=== PATIENT | male | born 1960 | race Caucasian/White ===

== ENCOUNTER 2025-04-20 05:43 | Inpatient (IN) ==
--- NOTE | 2025-04-17 10:58 | Anesthesiology Consultation ---
Date of Service April 17, 2025 Assessment & Plan Chart Review Chart Review: Acceptable Risk for Surgery and Patient NOT seen in Pre Admission Testing History Surgery Operation Date: 04/20/25 07:30 Proposed Procedures p Robotic Assisted Laparoscopic Radical Nephroureterectomy, Possible Hand Assist, Possible Open - Luis Mckee DO Height/Weight Height: 5 ft 11 in Weight: 99.79 kg Allergies Allergy/AdvReac Type Severity Reaction Status Date / Time Penicillins Allergy Unknown Unknown Verified 04/13/25 12:20 Medications Home Medications Medication Instructions Recorded Confirmed Last Taken carvedilol 12.5 mg tablet 12.5 mg PO BID 01/26/25 04/13/25 02/09/25 05:30 lisinopril 20 mg tablet 20 mg PO QAM 01/26/25 04/13/25 02/08/25 18:00 acetaminophen 500 mg tablet 1,000 mg PO QID PRN Pain, Mild 02/09/25 04/13/25 02/08/25 22:00 tamsulosin 0.4 mg capsule 0.4 mg PO HS #30 caps 02/09/25 04/13/25 Unknown cephalexin 500 mg capsule 500 mg PO BID 7 days #14 caps 04/14/25 Unknown Past Medical History Medical History Urothelial carcinoma of kidney dx 02/2025-reason for upcoming sx. Chronic kidney disease, stage 3a History of kidney stones passed on own Acid reflux Elevated PSA Borderline high cholesterol HTN (hypertension) Renal mass Following with urology BPH (benign prostatic hyperplasia) Past Family History Family History Mother Stroke Father Stroke Past Surgical History Surgical History Hx of cystoscopy (02/09/25) w/ RP, left ureteroscopy, left renal pelvis bx, laser tumor ablation History of colonoscopy History of lumbar fusion 2-3 Hx of bilateral hip replacements History of tooth extraction History of cataract surgery bilat History of cardiac cath no stents > approx 2022 Social History Smoking Status: Former smoker Do You Dip or Chew Tobacco: Yes (advised) Smoking End Date: 30 years ago Hx Alcohol Use: Yes alcohol intake frequency: holidays/special occasions only Hx Substance Use: No substance use type: does not use
[2025-04-20] MEDS ORDERED: Nursing to Pharmacy Communication SCH (06:15)
[2025-04-20] MEDS: LR 15ML/HR IV SCH (06:20)
[2025-04-20] MEDS ORDERED: MIDAZOLAM HCL 1 MG/ML 2ML VIAL ONE (06:42)
[2025-04-20] MEDS ORDERED: ONDANSETRON INJ 2 MG/ML 2 ML VIAL ONE (06:43)
[2025-04-20] MEDS ORDERED: PROPOFOL IV EMULSION 10 MG/ML 20 ML VIAL IV ONE (06:43)
[2025-04-20] MEDS ORDERED: LIDOCAINE 2% 20 MG/ML 5 ML SYR IV ONE (06:43)
[2025-04-20] MEDS ORDERED: ROCURONIUM BROMIDE 10 MG/ML 5 ML VIAL IV ONE ×2 (06:44→08:22)
[2025-04-20] MEDS ORDERED: DEXAMETHASONE SOD INJ 4 MG/ML VIAL ONE (06:44)
--- NOTE | 2025-04-20 07:01 | History & Physical Bridge Note ---
Date of Service April 20, 2025 History & Physical Bridge Note I have examined the patient, reviewed the History & Physical and in the interval since the performance of the History & Physical I have noted the following changes of clinical significance: no changes noted
[2025-04-20] MEDS ORDERED: ONDANSETRON INJ 2 MG/ML 2 ML VIAL IV PRN ×2 (07:15→08:29)
[2025-04-20] MEDS ORDERED: HYDROmorphone INJ 2 MG/ML SYR/VIAL IV PRN (08:29)
[2025-04-20] MEDS ORDERED: HYDROmorphone INJ 1 MG/ML SYRINGE IV PRN (08:29)
[2025-04-20] MEDS ORDERED: ATROPINE SULFATE 0.1 MG/ML 10ML SYR IV PRN (08:29)
[2025-04-20] MEDS ORDERED: SUGAMMADEX SODIUM 200 MG/2 ML VIAL IV ONE (08:35)
[2025-04-20] MEDS: SURGICEL ABSORB HEMOSTAT 2IN X 14IN TOP ONE (10:01)
[2025-04-20] MEDS ORDERED: PHENYLEPHRINE 100MCG/ML 5ML SYR ONE (10:05)
[2025-04-20] MEDS: FLOSEAL HEMOSTATIC MATRIX 10ML TOP ONE (11:35)
[2025-04-20] MEDS: TISSEEL FIBRIN SEALANT 10ML TOP ONE (11:35)
[2025-04-20] MEDS ORDERED: HYDROmorphone INJ 2 MG/ML SYR/VIAL ONE (11:39)
[2025-04-20] MEDS: BUPIVACAINE 0.5 % 5 MG/1 ML MPF 30ML VIAL ONE (11:48)
--- NOTE | 2025-04-20 12:10 | Operative Report ---
PG Post Operative Report Pre & Post Diagnosis Operation Date: 04/20/25 07:30 Pre-Op Diagnosis: Urothelial carcinoma of kidney, Renal mass Post-Op Diagnosis: Urothelial carcinoma of kidney, Renal mass I identified the patient and participated in the time-out.: Yes Procedure Operation Date: 04/20/25 07:30 Actual Procedures p Robotic Assisted Laparoscopic Left Radical Nephroureterectomy with extensive lysis of adhesions and closure of bladder - Luis Mckee DO Surgeon Luis Mckee, II, DO Clarifier ANNAMARIA Lynn Estimated Blood Loss 50 Findings Consistent with Post-Op Diagnosis Upper tract UCC of the renal pelvis of the left kidney. Significant adhesions in the pelvic region and along the lateral wall and significant attachment of portions of the omentum to the pelvis. Ureter with severe edematous changes additionally significant edematous changes throughout the perinephric fat. Specimens Left radical nephro ureterectomy Drains 18 [place] Kelley catheter. 10 [place] drain Anesthesia Type General Complications none Disposition Disposition: Recovery Room Indications Patient with confirmed upper tract high-grade UCC involving the renal pelvis. Risk and benefits were discussed at length. Patient elected to undergo robotic assisted laparoscopic radical nephroureterectomy. Description of Procedure The patient was brought to the operative suite and placed under general endotracheal intubation anesthesia in the supine position. The patient was tr ansferred to the lateral position with the operative side up. At this point, the patient prepped and draped in the usual sterile fashion and a timeout was completed. Preoperative antibiotics of Ancef 2 grams had been given. HELADIO's and SCD's were placed on the patient's lower extremities. A catheter was placed using sterile technique. With the time out completed the patient was flexed and the skin was marked. The lateral camera port site was anesthetized. A small incision was made into the skin and subcutaneous tissues. A Varess needle was selected and placed. The needle was easily moved and it was irrigated and aspirated without any issues or concerns for placement. Insufflation commenced. Once insufflated, an 8 mm robotic port was placed. The cavity was insufflated to 12-15 mmHG. A laparoscopic camera was placed and the abdominal cavity inspected. No bleeding, injury, or other concerning features were noted. At this point, the skin was marked for port placement and 8mm working ports were placed. The skin was anesthetized down to fascia and an approx 1cm incision was made to place the additional 2 x 8mm ports. Finally a 12 mm robotic port was placed in the inferior lower quadrant. Midline, Two pharmacy sales assistant ports were also placed in similar fashion under direct visualization. These ports were a 12 mm port right above the umbilicus and a smaller 5 mm port superior to this. The robot was positioned and docked. The camera was placed and all trocars were positioned under direct visualization. Cindy Mejía was integral in port placement, camera utilization, and docking procedure. She remained in sterile attire and then proceeded to assist the remainder of the case. At this point, I transitioned to the robotic console. The colon was mobilized medially to expose the retroperitoneum and the area assessed. Adhesions were freed to allow mobilization. Significant adhesions were noted in the pelvis. Additionally the tissue was noted to be significantly edematous coming from the retroperitoneum. A significant amount of adhesions were noted from the colon and were freed. Approx 20 additional minutes for lysis of adhesions. These were dissected with b vidal technique. Cautery was used to assist dissection and control bleeding. The retroperitoneal fat was assessed. This tissue was found to be severely edematous. The ureter and gonadal vein were identified. The ureter was isolated and dissection was taken superiorly along the gonadal vein in order to avoid excess manipulation of the ureter. This was followed to the renal pelvis and junction with the renal vein. The Renal Artery and Vein were then cleaned and exposed. Dissection was then taken inferiorly. This was dissected down to the crossing of the iliac vessels. At this point there was noted to be significant inflammatory changes. The ureter appeared more atrophic at this point. The surrounding tissue also thinned out significantly. At this point it was decided to manage the renal vessels prior to further dissection into the pelvis. The Vessels were assessed a final time. Utilizing a staple load on first the artery and then the vein the robotic stapling device with vascular loads were used to incise the vessels. No significant bleeding or other issues were noted. The adrenal vein was identified and able to be spared however due to its location and the close proximity and significant edematous changes along the gonadal vein the gonadal vein was excised with the specimen. There was an additional small vessel noted to be calling from the renal vein to what appeared to be the lumbar region. Was likely a lumbar vein. A additional small vessel was also found posterior to the renal vein going into a similar position. Both of these were clipped utilizing hemoclips. They were then incised. With the major vessels managed the kidney appeared to oscar appropriately. Dissection was then taken down to the posterior and lateral wall clearing the retroperitoneal fat surrounding the ureter completely. The gonadal vein was then clipped utilizing the Hem-o-quinn and the vessel was incised at its departure from the retroperitoneum. This allowed more mobility with dissection of the ureter. There was significant adhesions and edematous changes along this tissue with significant adherence of the gonadal vein. The ureter there was then dissected down into the pelvis. The patient was slightly repositioned into a reverse Trendelenburg position. Care was taken to gently retract the vas deferens as well as the surrounding tissue in the bladder. The bladder was appropriately collapsed. The ureter was able to be dissected down to the insertion into the bladder wall. For hemoclips were then placed across the ureter along the distal segments in order to assist with retraction as well as to close off the ureter. A V-Loc suture was then used to make a stay suture at the superior portion of the insertion of the ureter on the bladder. Once these were all in place utilizing the scissors the bladder was dissected down along the ureter to its insertion point and a small cuff of bladder was excised to remove the ureter completely. Once completely excised the V-Loc suture was utilized to close the mucosal and then a muscle layer in a running fashion to close the small opening and oversew the area. The area was inspected. The ureter was further over there were mobilized and freed along the lateral and inferior edges and placed into the area above the crossing of the iliacs. A leak test was then completed utilizing saline and the catheter. No leakage or other abnormalities were noted. The catheter was then set back to drainage. Care was then taken to further dissect the remaining attachments of the kidney and ureter. The adrenal vein was dissected free and the superior edge of the Stanley's fascia was able to be freed from the attachments to the spleen and the abdominal wall. The kidney was then fully mobilized and freed. No significant bleeding or major areas of concern were noted. Extensive inspection of the area was done with no signs of major bleeding or other issues. Surgicel hemostatic agent sheets were placed under the spleen and on the adrenal edge. Additionally she was placed on the vessel stumps. Hemostatic Floseal and Tisseel agents were also placed. These hemostatic agent was also placed on the vessel stumps. No major bleeding or other issues. The entire dissection space was inspected one final time. No bleeding or injuries or areas of concern were noted. No tumor or other concerning features w ere noted. At this point, the robot was undocked and moved away from the patient. The port sites were all assessed laparoscopically. The 12 mm midline port site was closed with the Marcus Redd device. The other ports were assessed and no issues observed. The 12 mm inferior robotic port incision was opened further exposing fascia. A larger incision was planned due to the significant edematous changes. This was extended and care was taken to dissect the fascia down. Once cleared the rectus muscle was able to be retracted medially. The abdominal cavity was then opened under careful monitoring. The kidney was attempted to be removed however due to the large size and the significant edematous changes the incision had to be significantly extended. This also required extension of the opening along the fascia. Care was taken to monitor it closely as the area was extended laterally. With significant manipulation the kidney was able to be removed in total including the entire specimen. At this point it was decided to leave a drain and a 10 [place] Citizen drain was placed in the port site incision just superior to the Grewal like incision created to remove the kidney. This was then used and positioned in the pelvis. A 3-0 silk suture was then used to secure it. The drain was set to drainage and the area inspected no major issues or concerns. Omentum was draped over the area. A running 1-0 PDS l suture was used to close fascia. A 2-0 Vicryl suture was then used to close the subcutaneous tissues in a running fashion. The skin at each site was closed with a stapling device. The area was cleaned and bandages placed on each incision. The patient was cleaned and bandaged. The patient was moved back into the supine position The patient was cleaned, aroused from anesthesia, and transferred to the pacu in stable condition having tolerated the procedure well with no complications. I was present and participated in all aspects of the procedure. ANNAMARIA Lynn was critical in the portions as mentioned above. Will plan to observe postoperatively and monitor. Will assess drain in the morning for possible removal. Will plan to maintain catheter for approximately 7 days to allow full healing of the bladder prior to removal. I attest to the content of the Intraoperative Record and any orders documented therein. Any exceptions are noted below.
[2025-04-20 12:31] LABS: Hematocrit (blood only) 38.1 % (42.0-52.0); Hemoglobin 12.2 g/dl (14.0-18.0); Mean Corpuscular Hemoglobin 27.1 pg (25.0-34.0); Mean Corpuscular Volume 84.5 fL (80.0-100.0); Platelet Count 184 K/uL (130-400); RDW Standard Deviation 43.6 fL (36.4-46.3); Red Blood Count 4.51 M/uL (4.70-6.10); White Blood Count 14.03 K/ul (4.8-10.8)
[2025-04-20 12:45] LABS: Alanine Aminotransferase 10.0 U/L (7-52); Albumin Globulin Ratio 1.1 (0.9-2); Alkaline Phosphatase 94.0 U/L (34-104); Anion Gap 7.0 (3-11); Bilirubin,Total 0.4 mg/dl (0.2-1.0); Blood Urea Nitrogen 17.0 mg/dl (6-23); Calcium 8.1 mg/dl (8.6-10.3); Carbon Dioxide 23.0 mmol/L (21-32); Chloride 109.0 mmol/L (98-107); Creatinine Clr Calc Pharmacy 67.4 ml/min; Globulin 3.1 gm/dl (2.5-4.0); Glucose 183.0 mg/dl (70-99(Fasting)); Potassium 4.9 mmol/L (3.5-5.1); Sodium 139.0 mmol/L (136-145); Total Protein 6.5 gm/dl (6.0-8.3)
--- NOTE | 2025-04-20 12:48 | Anesthesiology Progress Note ---
Date of Service April 20, 2025 Anesthesia Post Procedure Vital Signs Vital Signs: Temp Pulse Pulse Resp BP BP Pulse Ox 04/20/25 12:35 36.7 C 66 13 159/73 H 98 04/20/25 12:25 81 14 167/70 H 99 04/20/25 12:15 80 19 163/77 H 98 04/20/25 12:05 83 28 H 169/80 H 98 04/20/25 11:58 36.5 C 87 28 H 175/87 H 94 04/20/25 06:10 36.8 C 55 L 18 186/70 H 99 O2 Del Method O2 Flow Rate 04/20/25 12:35 Nasal Cannula 4 04/20/25 12:25 Nasal Cannula 4 04/20/25 12:15 Oxymask 6 04/20/25 12:05 Oxymask 6 04/20/25 11:58 Oxymask 6 04/20/25 06:10 Room Air Pain Intensity Abdomen: Pain Intensity: 3 Transfer of Care Handoff Completed per policy Notes Mental Status: alert / awake / arousable Patient Amnestic to Procedure: Yes Nausea / Vomiting: adequately controlled Pain: adequately controlled Airway Patency, RR, SpO2: stable & adequate BP & HR: stable & adequate Hydration State: stable & adequate Anesthetic Complications: no major complications apparent and Pt Satisfied with anesthetic care
[2025-04-20 12:50] LABS: Immature Granulocytes # (auto) 0.06 K/uL (0.01-0.20); Immature Granulocytes % (auto) 0.4 %
[2025-04-20] MEDS ORDERED: ACETAMINOPHEN 500 MG TAB PO PRN (12:53)
[2025-04-20] MEDS: MoRPHine SULFATE 2 MG/ML CARP IV PRN (13:17)
[2025-04-20] MEDS: D5W AND 1/2NSS + 20MEQ KCL 20 MEQ/1,000 ML BAG IV SCH (14:18)
[2025-04-20] MEDS: DOCUSATE SODIUM 100 MG CAP PO SCH (14:18)
--- NOTE | 2025-04-20 14:32 | Hospitalist Consultation ---
"Date of Consultation April 20, 2025 Assessment & Plan (1) Urothelial carcinoma of kidney: (2) HTN (hypertension): (3) Chronic kidney disease, stage 3a: (4) BPH w urinary obs/LUTS: Plan Shashank is a 65-year-old man with past medical history of urothelial carcinoma of the left kidney, CKD stage IIIa, hypertension, and BPH with LUTS. He had a laparoscopic left radical nephroureterectomy with Dr. Mckee on 04/20 and tolerated the procedure well. EBL 50 cc. Hospital medicine was consulted for medical management of his hypertension/CKD. #Urothelial carcinoma of left kidney | S/p radical left nephroureterectomy - Pain regimen, fluids, diet, activity level, DVT prophylaxis, and discharge planning per primary team. Agree with IV fluids overnight to prevent [place] - Requiring some supplemental O2 postoperatively. Wean O2 as tolerated to maintain O2 sat > 90%. Use incentive spirometer Q1HWA - Mild leukocytosis of 14.03 with neutrophil predominance, likely reactionary. Afebrile. Repeat CBC with a.m. labs - Chronic anemia, hgb at baseline postop. Monitor CBC with a.m. labs #Hypertension outpatient regimen of carvedilol 12.5 mg BID, lisinopril 20 mg daily - Blood pressure currently uncontrolled at 203/85 at time of consult - Added on hydralazine 10 mg IV Q8H PRN with parameters - Continue carvedilol and lisinopril #CKD stage IIIa defer management to nephrology who is also consulted #BPH with LUTS continue tamsulosin 0.4 mg HS Added on AM CBC and BMP Hospital medicine will continue to follow. Please reach out with questions or concerns. Supervising Physician Co-Signing Physician Notes Attending Attestation and Consult Note: Pt seen/examined, chart reviewed, consult care plan d/w VICENTE Junior. I agree w/ the christie components of her consult documentation. 65yo male with CKD stage IIIa, urothelial carcinoma of left kidney, BPH with LUTS, HTN. He presented today to undergo laparoscopic left radical nephroureterectomy with Dr. Ciro Mckee, [facility]. We were asked to see Mr Ambrocio post-op for BP management. During my assessment he complained of left sided abd & flank pain. Also complained of abdominal bloating. No dyspnea or chest pain. No headache. PMH/PSH/allergies/meds/sochx/famhx - reviewed vitals - BP markedly elevated, otherwise VSS gen - sitting in chair, looks mildly uncomfortable neck - no JVD heart - RRR, s1 s2, no murmur lungs - CTA b/l abd - mildly distended, BS decreased, incisional tenderness on left, no HSM ext - no edema, pulses 2+ b/l pre-op labs from March reviewed - Creatinine 1.33 A/P: 1. urothelial cancer of left kidney s/p radical nephroureterectomy by Dr Mckee 2. uncontrolled HTN - some of this is likely 2nd to pain, car-operative decadron, and holding of his BP meds prior to surgery -would give his coreg early -hydralazine IV prn -hold lisinopril for now until stability of creatinine is verified tomorrow 3. CKD stage 3a - repeat BMP am 4. BPH - flomax Thank you for this consult; we will follow with you Gurmeet Cool MD History of Present Illness Reason for Consultation: HTN, CKD Requesting Physician: Luis Mckee II, DO Attending Physician: Luis Mckee II, DO History of Present Illness Shashank is a pleasant 65-year-old man with PMH of CKD stage IIIa, urothelial carcinoma of kidney, BPH with LUTS, and vitamin D deficiency. He presented for laparoscopic left radical nephroureterectomy with Dr. Mckee on 04/20/2025. Per review of operative report, EBL was listed as 50 cc, and there were no complications noted. Per review of patient's vitals postop, he has been hypertensive and requiring supplemental O2; vitals otherwise stable. No recent medication changes. Does not use supplemental O2 at baseline. No CPAP at bedtime. Patient seen and evaluated at bedside postoperatively. He reports some discomfort around his surgical site, primarily around his left flank that radiates to his abdomen, but states overall his pain is controlled with medication. He is well tolerating his clear liquid diet. He denies any issues with his Kelley catheter. Denies chest pain, shortness of breath. Denies fever, chills, lightheadedness, dizziness, headache. Denies N/V/D, abdominal pain. Denies paresthesias in his extremities. No complaints or concerns at this time. Allergies Allergy/AdvReac Type Severity Reaction Status Date / Time Penicillins Allergy Unknown Unknown Verified 04/20/25 06:06 Home Medications Medication Instructions Recorded Confirmed Type carvedilol 12.5 mg tablet 12.5 mg PO BID 01/26/25 04/20/25 History lisinopril 20 mg tablet 20 mg PO QAM 01/26/25 04/20/25 History acetaminophen 500 mg tablet 1,000 mg PO QID PRN Pain, Mild 02/09/25 04/20/25 History tamsulosin 0.4 mg capsule 0.4 mg PO HS #30 caps 02/09/25 04/20/25 Rx oxycodone 5 mg tablet 5 mg PO Q6H PRN pain #12 tabs 04/21/25 Rx Patient History Medical History Urothelial carcinoma of kidney dx 02/2025-reason for upcoming sx. Chronic kidney disease, stage 3a History of kidney stones passed on own Acid reflux Elevated PSA Borderline high cholesterol HTN (hypertension) Renal mass Following with urology BPH (benign prostatic hyperplasia) Surgical History Hx of cystoscopy (02/09/25) w/ RP, left ureteroscopy, left renal pelvis bx, laser tumor ablation History of colonoscopy History of lumbar fusion 2-3 Hx of bilateral hip replacements History of tooth extraction History of cataract surgery bilat History of cardiac cath no stents > approx 2022 Family History Mother Stroke Father Stroke Social History Smoking Status: Former smoker Tobacco Type: Smokeless Tobacco (Dip or Chew) Second Hand Exposure: No; Do You Dip or Chew Tobacco: No; Hx Alcohol Use: No Hx Substance Use: No Preferred Language: Nepali Communication Ability: Effective Swager Operator Required: No Beliefs That Will Affect Care: None Current Living Situation: Alone Current Living Situation Comment: 3 story home Feels Safe at Home: Yes Assistive Devices: Walker Review of Systems Review of Systems: All systems reviewed & are unremarkable except as noted in HPI & below Physical Exam Physical Exam: General: No acute distress, nondiaphoretic, well-developed, well-nourished. Skin: Warm, dry. No rashes or peripheral edema noted. Cardiac: Regular rate and rhythm without murmurs gallops or rubs. Pulm: Diminished at bases but otherwise clear to auscultation bilaterally without wheezes, rales or rhonchi. Normal respiratory effort. 96% on 2 L NC. Abdominal: Soft, nontender. Distended. Hypoactive bowel sounds present. : Kelley catheter draining pale yellow urine. Neuro: A&O x3. No focal neurological deficits. Results & Data Results & Data Vital Signs (Past 12 Hours) Vital Signs Temp Pulse Pulse Resp BP BP Pulse Ox 04/20/25 13:45 97.5 F L 62 20 203/85 H 96 04/20/25 13:15 98.1 F 60 20 194/80 H 93 04/20/25 12:49 98.1 F 63 20 182/72 H 96 04/20/25 12:35 98.1 F 66 13 159/73 H 98 04/20/25 12:25 81 14 167/70 H 99 04/20/25 12:15 80 19 163/77 H 98 04/20/25 12:05 83 28 H 169/80 H 98 04/20/25 11:58 97.7 F 87 28 H 175/87 H 94 04/20/25 06:10 98.2 F 55 L 18 186/70 H 99 O2 Del Method O2 Flow Rate 04/20/25 13:45 Nasal Cannula 2 04/20/25 13:15 Nasal Cannula 2 04/20/25 12:49 Nasal Cannula 2 04/20/25 12:35 Nasal Cannula 4 04/20/25 12:25 Nasal Cannula 4 04/20/25 12:15 Oxymask 6 04/20/25 12:05 Oxymask 6 04/20/25 11:58 Oxymask 6 04/20/25 06:10 Room Air Laboratory Results Reviewed CBC with differential Reviewed CMP, chemistries PG Care Time/CCT Total # of Minutes Spent Total Time Spent with Patient: Total time spent is greater than 50% in coordination of care (as documented) at patient's floor/unit and/or counseling patient: Coding Level of Care Code 93260 IN/OBS CONSULT LVL 4,60M Diagnoses Urothelial carcinoma of kidney C64.9 HTN (hypertension) I10 Chronic kidney disease, stage 3a N18.31 BPH w urinary obs/LUTS N40.1; N13.8"
--- NOTE | 2025-04-20 15:51 | Nephrology Consultation ---
Date of Consultation April 20, 2025 Assessment & Plan (1) Urothelial carcinoma of kidney: (2) History of nephrectomy, left: (3) HTN (hypertension): (4) Chronic kidney disease, stage 3a: Plan Stage 3A CKD, b/l cr 1.3 to 1.5 mg/dl with h/o HTN, NSAID use, admitted to the hospital this morning and had elective surgery was without complication and postsurgery robotic left nephroureterectomy. Labs showed kidney function stable. Has been making decent amount of urine. Prior urinalysis was negative for proteinuria. BP has been elevated most like related to postsurgical pain as he seemed to be in significant pain just immediately after nephrectomy. He had lab after nep hrectomy this morning showed kidney function stable electrolyte acceptable. --Blood pressure elevated most likely related to surgical pain, focus on pain control --Continue on lisinopril 20 mg daily for now, if BP remains elevated, will consider increasing dose. --avoid NSAIDs. --Monitor kidney function and urine output, expect kidney function to stay relatively stable. Thank you for the consultation, it was a pleasure to see Mr. Ambrocio. History of Present Illness Reason for Consultation: Stage 3A CKD, acute kidney injury, nephrectomy for renal cell carcinoma. Attending Physician: Luis Mckee, II, DO History of Present Illness Mr. Shashank Ambrocio is a 65 yo m with stage 3A CKD, b/l cr 1.3 to 1.5 mg/dl, HTN, NSAID use recent [place] and left sided urothelial carcinoma, admitted for elective nephrectomy this morning. Nephrology consult was requested for management of kidney function after unilateral nephrectomy. EMR records were reviewed in detail during patient's visit. Shashank was admitted this morning and had elective robotic left nephroureterectomy. Surgery was uneventful. He has been tolerating soft diet but has been having significant pain at surgical area. Blood pressure has been elevated. Reviewed lab after surgery showed kidney function relatively stable, creatinine 1.3, electrolyte acceptable. Prior urinalysis was negative for proteinuria. Has been on lisinopril 20 mg daily. Has been taking ibuprofen 2-4 tabs daily for years for back and leg pain. No family history of CKD or ESKD but dad had history of dialysis personal and possibly uncle had kidney malignancy as well. Chews tobacco more than 30 years. Works as a painting. He first noticed gross hematuria in Nov [address] showed left pelvic fullness. Cystoscopy on 02/09/2025 showed left ureteral mass and had laser tumor ablation and biopsy which confirmed high-grade noninvasive urothelial carcinoma s of/p robotic left nephroureterectomy on 04/20/2025. Hypertension for more than 5 years, blood pressure generally poorly controlled, on lisinopril 20 mg daily, carvedilol 12.5 mg twice a day. History of diabetes for coronary artery disease. Has BPH, on tamsulosin. He just came from surgery few hours ago, continues to have significant pain at surgical site. Blood pressure elevated. Denies any shortness of breath or chest pain. Tolerating liquid diet. Allergies Allergy/AdvReac Type Severity Reaction Status Date / Time Penicillins Allergy Unknown Unknown Verified 04/20/25 06:06 Home Medications Medication Instructions Recorded Confirmed Type carvedilol 12.5 mg tablet 12.5 mg PO BID 01/26/25 04/20/25 History lisinopril 20 mg tablet 20 mg PO QAM 01/26/25 04/20/25 History acetaminophen 500 mg tablet 1,000 mg PO QID PRN Pain, Mild 02/09/25 04/20/25 History tamsulosin 0.4 mg capsule 0.4 mg PO HS #30 caps 02/09/25 04/20/25 Rx cephalexin 500 mg capsule 500 mg PO BID 7 days #14 caps 04/14/25 04/20/25 Rx Patient History Medical History Urothelial carcinoma of kidney dx 02/2025-reason for upcoming sx. Chronic kidney disease, stage 3a History of kidney stones passed on own Acid reflux Elevated PSA Borderline high cholesterol HTN (hypertension) Renal mass Following with urology BPH (benign prostatic hyperplasia) Surgical History Hx of cystoscopy (02/09/25) w/ RP, left ureteroscopy, left renal pelvis bx, laser tumor ablation History of colonoscopy History of lumbar fusion 2-3 Hx of bilateral hip replacements History of tooth extraction History of cataract surgery bilat History of cardiac cath no stents > approx 2022 Family History Mother Stroke Father Stroke Social History Smoking Status: Former smoker Tobacco Type: Smokeless Tobacco (Dip or Chew) Smoking End Date: 30 years ago; Second Hand Exposure: No; Do You Dip or Chew Tobacco: Yes (advised); Tobacco Cessation Education Requested by Patient: No Hx Alcohol Use: Yes Hx Substance Use: No Preferred Language: [place]se Communication Ability: Effective 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 Beliefs That Will Affect Care: None Current Living Situation: Alone Other Information That Helps Us Care for You: No Feels Safe at Home: Yes Safety Concerns: Feels Safe At This Time Assistive Devices: Glasses Review of Systems Review of Systems: All systems reviewed & are unremarkable except as noted in HPI & below Physical Exam Constitutional: WD/WN, vitals as above no acute distress Eyes: + anicteric sclerae Neck: normal visual inspection Respiratory: no respiratory distress Auscultation: lungs clear to auscultation bilaterally Cardiovascular: Rate/Rhythm: regular rate and regular rhythm Heart Sounds: normal S1 and normal S2 Extremities: no edema Gastrointestinal (Abdomen): Obese, surgical site dressing intact. Musculoskeletal: Extremities: extremities normal to inspection Skin: no rashes, warm and dry Neurologic: no focal motor deficits Psychiatric: Orientation: alert and oriented x 3 Affect: euthymic affect Genitourinary: Kelley bag with clear urine Results & Data Vital Signs (Past 12 Hours) Vital Signs Temp Pulse Pulse Resp BP BP Pulse Ox 04/20/25 15:07 36.6 C 85 18 186/80 H 96 04/20/25 13:45 36.4 C L 62 20 203/85 H 96 04/20/25 13:15 36.7 C 60 20 194/80 H 93 04/20/25 12:49 36.7 C 63 20 182/72 H 96 04/20/25 12:35 36.7 C 66 13 159/73 H 98 04/20/25 12:25 81 14 167/70 H 99 04/20/25 12:15 80 19 163/77 H 98 04/20/25 12:05 83 28 H 169/80 H 98 04/20/25 11:58 36.5 C 87 28 H 175/87 H 94 04/20/25 06:10 36.8 C 55 L 18 186/70 H 99 O2 Del Method O2 Flow Rate 04/20/25 15:07 Nasal Cannula 2 04/20/25 13:45 Nasal Cannula 2 04/20/25 13:15 Nasal Cannula 2 04/20/25 12:49 Nasal Cannula 2 04/20/25 12:35 Nasal Cannula 4 04/20/25 12:25 Nasal Cannula 4 04/20/25 12:15 Oxymask 6 04/20/25 12:05 Oxymask 6 04/20/25 11:58 Oxymask 6 04/20/25 06:10 Room Air PG Care Time/CCT Total # of Minutes Spent Total Time Spent with Patient: Total time spent is greater than 50% in coordination of care (as documented) at patient's floor/unit and/or counseling patient: Coding Level of Care Code 50590 INT INP/OBS CARE MIN Diagnoses Urothelial carcinoma of kidney C64.9 History of nephrectomy, left Z90.5 HTN (hypertension) I10 Chronic kidney disease, stage 3a N18.31
[2025-04-20] MEDS: TAMSULOSIN HCL 0.4 MG CAP PO SCH (20:53)
[2025-04-21 06:49] LABS: Hematocrit (blood only) 37.6 % (42.0-52.0); Hemoglobin 12.2 g/dl (14.0-18.0); Immature Granulocytes # (auto) 0.04 K/uL (0.01-0.20); Immature Granulocytes % (auto) 0.4 %; Mean Corpuscular Hemoglobin 27.2 pg (25.0-34.0); Mean Corpuscular Volume 83.9 fL (80.0-100.0); Platelet Count 208 K/uL (130-400); RDW Standard Deviation 43.0 fL (36.4-46.3); Red Blood Count 4.48 M/uL (4.70-6.10); White Blood Count 10.80 K/ul (4.8-10.8)
--- NOTE | 2025-04-21 08:33 | Urology Progress Note ---
Date of Service April 21, 2025 Assessment & Plan (1) History of nephrectomy, left: Plan: POD 1 from Robotic Assisted Laparoscopic Left Radical Nephroureterectomy with extensive lysis of adhesions and closure of bladder Hypertensive, otherwise vitals stable. Afebrile wbc 10.80, hgb 12.2 Having some pain, also reporting chest pain and shortness of breath. Discussed with nursing. Hospitalist service will be contacted for this. EKG pending Drain output 25ml overnight. Possibly remove today. Will reassess. dvt prophylaxis: scd's, encouraged ambulation/activity Will reassess for discharge today, pending further work up/results. Patient seen again around 12:30pm. Sitting in bedside chair. Had ekg and cxr, troponin slightly elevated. Repeat lab ordered for 1500 today Patient does not feel comfortable with discharge yet today. Will plan to keep him again tonight and reassess for discharge tomorrow. Drain output about 75ml. Will leave drain in until tomorrow. (2) Urothelial carcinoma of kidney: Admission and Anticipated Discharge Date Admission Date: April 20, 2025 Subjective 65 year old patient POD 1 from Robotic Assisted Laparoscopic Left Radical Nephroureterectomy with extensive lysis of adhesions and closure of bladder. Reports some abdominal pain. Also states he has some chest pain, shortness of breath, pain with deep breath. Pass some flatus yesterday, but not today. Physical Exam Constitutional: well developed and well nourished; no acute distress Neck: normal visual inspection Respiratory: normal respiratory effort; no respiratory distress and no labored breathing Cardiovascular: Rate/Rhythm: regular rate Gastrointestinal (Abdomen): Inspection/Auscultation: + abdomen distended Percussion/Palpation: + abdomen tender and abdomen soft Dressing and drain in place. Did not remove yet at this point Psychiatric: A+Ox3, euthymic affect Genitourinary: catheter in place, draining clear yellow urine Results & Data Vital Signs (Past 12 Hours) Vital Signs Temp Pulse Pulse Pulse Resp BP Pulse Ox 04/21/25 07:57 36.3 C L 77 18 169/79 H 95 04/21/25 03:43 36.7 C 81 20 176/73 H 94 04/21/25 01:29 16 192/81 H 04/21/25 00:19 36.7 C 80 20 194/78 H 95 07/17/25 22:04 61 O2 Del Method 04/21/25 07:57 Room Air 04/21/25 03:43 Room Air 04/21/25 01:29 04/21/25 00:19 Room Air 04/20/25 22:04 PG Care Time/CCT Total # of Minutes Spent Total Time Spent with Patient: Total time spent is greater than 50% in coordination of care (as documented) at patient's floor/unit and/or counseling patient: Coding Level of Care Code None Diagnoses History of nephrectomy, left Z90.5 Urothelial carcinoma of kidney C64.9
--- NOTE | 2025-04-21 08:49 | Hospitalist Progress Note ---
"Date of Service April 21, 2025 Assessment & Plan (1) Urothelial carcinoma of kidney: (2) Chest pain: (3) HTN (hypertension): (4) Chronic kidney disease, stage 3a: (5) BPH w urinary obs/LUTS: Plan Shashank is a 65-year-old man with past medical history of urothelial carcinoma of the left kidney, CKD stage IIIa, hypertension, and BPH with LUTS. He had a laparoscopic left radical nephroureterectomy with Dr. Mckee on 04/20 and tolerated the procedure well. EBL 50 cc. Hospital medicine was consulted for medical management of his hypertension/CKD. #Urothelial carcinoma of left kidney | S/p radical left nephroureterectomy - Pain regimen, fluids, diet, activity level, DVT prophylaxis, and discharge planning per primary team - No longer requiring supplemental O2 - Leukocytosis now resolved, was likely reactionary to surgery. Remains afebrile - Chronic anemia, hgb at baseline postop #Chest pain - complained of chest pain morning of 04/21 - likely secondary to gas pains from robotic assisted laparoscopic surgery - EKG with NSR with 1st degree block and PACs. No ischemic changes - Troponin midly elevated at 39.1 - will repeat at 1500 - CXR with no acute cardiopulmonary abnormality; does note intraperitoneal free air below the diaphragm - likely related to surgery - Hypertensive at 169/79; vitals otherwise stable #Hypertension outpatient regimen of carvedilol 12.5 mg BID, lisinopril 20 mg daily - Blood pressure currently uncontrolled at 203/85 at time of consult - Added on hydralazine 10 mg IV Q8H PRN with parameters - Continue carvedilol and lisinopril #CKD stage IIIa defer management to nephrology who is also consulted #BPH with LUTS continue tamsulosin 0.4 mg HS Hospital medicine will continue to follow. Please reach out with questions or concerns. Ordered EKG, troponin, CXR Admission and Anticipated Discharge Date Admission Date: April 20, 2025 Supervising Physician Co-Signing Physician Notes Attending Attestation - Chart reviewed, care plan d/w VICENTE Junior. I agree w/ the christie components of her consult documentation. Gurmeet Cool MD Subjective Patient seen and evaluated in bedside chair with two of his friends present. He had chest pain this morning which he reported around 0800 but states this began around 0200. He describes this has a stabbing pain with some associated shortness of breath. He denies any chest pain or shortness of breath at this time. Denies lightheadedness/dizziness/anxiety. He reports his chest pain resolved after getting OOB to the bedside chair. Likely was referred pain from gas during his surgery yesterday. We discussed the results of his EKG, telemetry monitoring, CXR, and labs/troponin. Currently, he has some left flank discomfort and abdominal discomfort. He denies any other complaints or concerns at this time. Telemetry reviewed: NSR with 1st degree block and PACs, rate 60-80s. Review of Systems Review of Systems: All systems reviewed & are unremarkable except as noted in Subjective Gastrointestinal: + bloating Genitourinary: + flank pain (left side) Physical Exam Physical Exam: General: No acute distress, nondiaphoretic, well-developed, well-nourished. Skin: Warm, dry. No rashes or peripheral edema noted. Cardiac: Regular rate and rhythm without murmurs gallops or rubs. Pulm: Diminished at bases but otherwise clear to auscultation bilaterally without wheezes, rales or rhonchi. Normal respiratory effort. 95% on room air. Abdominal: Soft. Tender to palpation. Distended. Hypoactive bowel sounds present. : Kelley catheter draining clear yellow urine. Neuro: A&O x3. No focal neurological deficits. Results & Data Results & Data Vital Signs (Past 12 Hours) Vital Signs Temp Pulse Pulse Pulse Resp BP Pulse Ox 04/21/25 07:57 97.3 F L 77 18 169/79 H 95 04/21/25 03:43 98.1 F 81 20 176/73 H 94 04/21/25 01:29 16 192/81 H 04/21/25 00:19 98.1 F 80 20 194/78 H 95 04/20/25 22:04 61 O2 Del Method 04/21/25 07:57 Room Air 04/21/25 03:43 Room Air 04/21/25 01:29 04/21/25 00:19 Room Air 04/20/25 22:04 Laboratory Results Reviewed CBC Reviewed CMP Reviewed troponin Diagnostic Findings Reviewed CXR Chest X-Ray 04/21/25 08:37 SINGLE VIEW CHEST CLINICAL HISTORY: Chest pain. Recent surgery. FINDINGS: An AP, portable, upright chest radiograph is correlated with chest CT dated 03/21/2025. The heart is enlarged but noting atherosclerotic calcification of the thoracic aorta. The pulmonary vasculature is noncongested. There is elevation of the left hemidiaphragm and bibasilar atelectasis. No airspace consolidation typical for pneumonia or large pleural effusion is identified. No pneumothorax is seen. The skeletal structures are osteopenic. The bony thorax is grossly intact. Intraperitoneal free air is seen below the diaphragm. IMPRESSION: 1. Cardiomegaly with no acute cardiopulmonary abnormality identified. 2. Intraperitoneal free air below the diaphragm is nonspecific and may be related to recent surgery. Clinical correlation will be essential. ACT 112: Negative or not required by law. Electronically signed by: Henry Wadsworth M.D. 04/21/2025 9:07 AM PG Care Time/CCT Total # of Minutes Spent Total Time Spent with Patient: Total time spent is greater than 50% in coordination of care (as documented) at patient's floor/unit and/or counseling patient: Coding Level of Care Code 36921 SUB INP/OBS CARE 3/50MIN Diagnoses Urothelial carcinoma of kidney C64.9 Chest pain R07.9 HTN (hypertension) I10 Chronic kidney disease, stage 3a N18.31 BPH w urinary obs/LUTS N40.1; N13.8"
--- NOTE | 2025-04-21 09:08 | XRay Report ---
SINGLE VIEW CHEST CLINICAL HISTORY: Chest pain. Recent surgery. FINDINGS: An AP, portable, upright chest radiograph is correlated with chest CT dated 03/21/2025. The heart is enlarged but noting atherosclerotic calcification of the thoracic aorta. The pulmonary vascu lature is noncongested. There is elevation of the left hemidiaphragm and bibasilar atelectasis. No ai rspace consolidation typical for pneumonia or large pleural effusion is identified. No pneumothorax i s seen. The skeletal structures are osteopenic. The bony thorax is grossly intact. Intraperitoneal fr ee air is seen below the diaphragm. IMPRESSION: 1. Cardiomegaly with no acute cardiopulmonary abnormality identified. 2. Intraperitoneal free air below the diaphragm is nonspecific and may be related to recent surgery. Clinical correlation will be essential. ACT 112: Negative or not required by law. Electronically signed by: Henry Wadsworth M.D. 04/21/2025 9:07 AM
--- NOTE | 2025-04-21 10:23 | Nephrology Progress Note ---
Date of Service April 21, 2025 Assessment & Plan (1) Urothelial carcinoma of kidney: (2) History of nephrectomy, left: (3) HTN (hypertension): (4) Chronic kidney disease, stage 3a: Plan Stage 3A CKD, b/l cr 1.3 to 1.5 mg/dl with h/o HTN, NSAID use, admitted to the hospital this morning and had elective surgery was without complication and postsurgery robotic left nephroureterectomy. Labs showed kidney function stable. Has been making decent amount of urine. Prior urinalysis was negative for proteinuria. BP has been elevated most like related to postsurgical pain as he seemed to be in significant pain s/p nephrectomy. He had lab after nephrectomy showing kidney function stable electrolyte acceptable. Decent urine output. Labs from this morning currently pending. --Continue on lisinopril 20 mg daily for now, if kidney function staying stable from labs this morning, electrolyte acceptable and if BP remains elevated, will consider increasing dose. --avoid NSAIDs. --Monitor kidney function and urine output, expect kidney function to stay relatively stable. Admission and Anticipated Discharge Date Admission Date: April 20, 2025 David Encarnacion was seen and evaluated this morning. He continues to have significant pain at surgical site. Has been having some chest pain and pressure since yesterday. Also feeling it is difficult to take deep breath. Has been tolerating po intake. Blood pressure remains elevated. Has been having decent urine output. Creatinine was stable yesterday afternoon but lab this Morning currently Pending. Hemoglobin Stable at 12.2. Physical Exam Constitutional: WD/WN, vitals as above no acute distress Eyes: + anicteric sclerae Respiratory: no respiratory distress Auscultation: lungs clear to auscultation bilaterally Cardiovascular: Rate/Rhythm: regular rate and regular rhythm Heart Sounds: normal S1 and normal S2 Extremities: no edema Gastrointestinal (Abdomen): left LQ dressing intact, drain in place with minimum collection. Musculoskeletal: Extremities: extremities normal to inspection Skin: no rashes, warm and dry Neurologic: no focal motor deficits Psychiatric: Orientation: alert and oriented x 3 Affect: euthymic affect Results & Data Vital Signs (Past 12 Hours) Vital Signs Temp Pulse Pulse Resp BP Pulse Ox O2 Del Method 04/21/25 07:57 36.3 C L 77 18 169/79 H 95 Room Air 04/21/25 03:43 36.7 C 81 20 176/73 H 94 Room Air 04/21/25 01:29 16 192/81 H 04/21/25 00:19 36.7 C 80 20 194/78 H 95 Room Air PG Care Time/CCT Total # of Minutes Spent Total Time Spent with Patient: Total time spent is greater than 50% in coordination of care (as documented) at patient's floor/unit and/or counseling patient: Coding Level of Care Code 61989 SUB INP/OBS CARE 2/35MIN Diagnoses Urothelial carcinoma of kidney C64.9 History of nephrectomy, left Z90.5 HTN (hypertension) I10 Chronic kidney disease, stage 3a N18.31
[2025-04-21 10:40] LABS: Anion Gap 8.0 (3-11); Calcium 8.4 mg/dl (8.6-10.3); Carbon Dioxide 25.0 mmol/L (21-32); Chloride 106.0 mmol/L (98-107); Potassium 4.1 mmol/L (3.5-5.1); Sodium 139.0 mmol/L (136-145)
[2025-04-21 10:45] LABS: Blood Urea Nitrogen 13.0 mg/dl (6-23); Creatinine Clr Calc Pharmacy 75.2 ml/min; Glucose 137.0 mg/dl (70-99(Fasting))
--- NOTE | 2025-04-21 11:59 | Electrocardiogram Report ---
Test Reason : Blood Pressure : */* mmHG Vent. Rate : 70 BPM Atrial Rate : 70 BPM P-R Int : 268 ms QRS Dur : 104 ms QT Int : 416 ms P-R-T Axes : 40 5 77 degrees QTcB Int : 449 ms Sinus rhythm with 1st degree A-V block with Premature atrial complexes Otherwise normal ECG No previous ECGs available Confirmed by Mir Fontana ([id number]) on 04/21/2025 11:58:34 AM Referred By: Luis Mckee Confirmed By: Mir Fontana
[2025-04-22 07:29] LABS: Hematocrit (blood only) 35.8 % (42.0-52.0); Hemoglobin 11.6 g/dl (14.0-18.0); Mean Corpuscular Hemoglobin 27.4 pg (25.0-34.0); Mean Corpuscular Volume 84.4 fL (80.0-100.0); Platelet Count 176 K/uL (130-400); RDW Standard Deviation 43.6 fL (36.4-46.3); Red Blood Count 4.24 M/uL (4.70-6.10); White Blood Count 9.22 K/ul (4.8-10.8)
[2025-04-22 07:44] LABS: Anion Gap 5.0 (3-11); Blood Urea Nitrogen 15.0 mg/dl (6-23); Calcium 8.3 mg/dl (8.6-10.3); Carbon Dioxide 27.0 mmol/L (21-32); Chloride 106.0 mmol/L (98-107); Creatinine Clr Calc Pharmacy 66.4 ml/min; Glucose 118.0 mg/dl (70-99(Fasting)); Potassium 4.3 mmol/L (3.5-5.1); Sodium 138.0 mmol/L (136-145)
[2025-04-22 08:15] VITALS: BP 146/84; RESP 18; TEMP 98.2; O2SAT 97
--- NOTE | 2025-04-22 08:53 | Urology Progress Note ---
Date of Service April 22, 2025 Assessment & Plan (1) History of nephrectomy, left: (2) Urothelial carcinoma of kidney: Plan POD 2 from Robotic Assisted Laparoscopic Left Radical Nephroureterectomy with extensive lysis of adhesions and closure of bladder Hypertensive, additionally dealing with some pain issues. Has not been severe. And mild tachycardia also likely related to pain. wbc 1 decreased to 9.22. Creatinine today was 1.27. Hemoglobin did have a mild decrease but has been overall stable. Having some pain, also reporting chest pain and shortness of breath. Was assessed by the hospitalist team. Troponins were mildly elevated however they decreased on repeat analysis. Likely secondary to [place] after nephrectomy. Drain output has decreased with 10 cc over the last shift. Plan to remove drain today. Catheter will remain in place until follow-up for stitch and staple removal. Will plan for discharge today, pending approval from consultants and continued improvement over the day. Admission and Anticipated Discharge Date Admission Date: April 20, 2025 Subjective Postop from urologic surgery. Postop day 2 from robotic assisted laparoscopic radical nephro ureterectomy patient has been tolerating well, but is having some pain and discomfort. Incisions have been mild sore. Having some abdominal distension/gas pains. Has tolerated catheter. Has not had severe pain or uncontrollable pain. Patient has been ambulating. Has not had bowel movement or major change. No new nausea or vomiting. Had tolerated anesthesia without major problems Patient had some chest pain and back pain yesterday. Hospitalist team ordered troponins as well as chest x-ray. Troponins were mildly elevated but did decrease on repeat assessment. Tolerated diet postoperatively. Review of Systems Review of Systems: All systems reviewed & are unremarkable except as noted in HPI & below Physical Exam Physical Exam: General: Alert in no acute distress. HEENT: Normocephalic Atraumatic. Inspection normal. Cranial Nerves 2-12 Grossly intact. Normal inspection of face. Normal inspection of neck. Psychologic: Normal affect. Respiratory: Nonlabored. No use of accessory muscles. No tachypnea or dyspnea. Cardiovascular: No tachycardia Skin: [place] and Dry. No rashes or visible lesions. Extremities/Lymphatics: No edema Abdomen: Appropriately tender. Mild distended. No rebound or guarding. Wound: Clean, dry, covered. Drain in place in left lower quadrant. 10 cc last shift. Kelley catheter in place draining clear yellow urine. Results & Data Vital Signs (Past 12 Hours) Vital Signs Temp Pulse Pulse Pulse Resp BP Pulse Ox 04/22/25 08:28 120 H 04/22/25 08:15 36.8 C 56 L 18 146/84 H 97 04/22/25 02:46 36.7 C 117 H 16 174/99 H 93 04/21/25 23:13 36.7 C 86 16 193/76 H 94 04/21/25 22:20 79 O2 Del Method 04/22/25 08:28 04/22/25 08:15 Room Air 04/22/25 02:46 Room Air 04/21/25 23:13 Room Air 04/21/25 22:20 PG Care Time/CCT Total # of Minutes Spent Total Time Spent with Patient: Total time spent is greater than 50% in coordination of care (as documented) at patient's floor/unit and/or counseling patient: Coding Level of Care Code None Diagnoses History of nephrectomy, left Z90.5 Urothelial carcinoma of kidney C64.9
--- NOTE | 2025-04-22 09:42 | Hospitalist Progress Note ---
"Date of Service April 22, 2025 Assessment & Plan (1) Urothelial carcinoma of kidney: (2) Chest pain: (3) HTN (hypertension): (4) Chronic kidney disease, stage 3a: (5) BPH w urinary obs/LUTS: Plan Shashank is a 65-year-old man with past medical history of urothelial carcinoma of the left kidney, CKD stage IIIa, hypertension, and BPH with LUTS. He had a laparoscopic left radical nephroureterectomy with Dr. Mckee on 04/20 and tolerated the procedure well. EBL 50 cc. Hospital medicine was consulted for medical management of his hypertension/CKD. #Urothelial carcinoma of left kidney | S/p radical left nephroureterectomy - Pain regimen, fluids, diet, activity level, DVT prophylaxis, and discharge planning per primary team - No longer requiring supplemental O2 - Leukocytosis resolved, was likely reactionary to surgery. Remains afebrile - Chronic anemia, mild drop in hgb postop from 12.2 --> 11.6. Stable - Recommend bowel regimen (e.g. 1-2 packets of MiraLAX daily) to prevent constipation #Chest pain - complained of chest pain morning of 04/21 - likely secondary to gas pains from robotic assisted laparoscopic surgery. Now resolved - EKG with NSR with 1st degree block and PACs. No ischemic changes - Troponin mildly elevated at 39.1, then down trended. Likely demand ischemia in setting of surgical intervention - CXR with no acute cardiopulmonary abnormality; does note intraperitoneal free air below the diaphragm - likely related to surgery #Hypertension | Tachycardia outpatient regimen of carvedilol 12.5 mg BID, lisinopril 20 mg daily - Mildly elevated BP and tachycardic, likely secondary to pain. Continue pain regimen - Continue carvedilol and lisinopril. IV hydralazine available PRN with parameters #CKD stage IIIa defer management to nephrology who is also consulted #BPH with LUTS continue tamsulosin 0.4 mg HS Patient is medically stable for discharge from hospital medicine's perspective. We will sign off at this time. Please reach out with any questions or concerns. Admission and Anticipated Discharge Date Admission Date: April 20, 2025 Supervising Physician Co-Signing Physician Notes Attending Attestation - Chart reviewed, consult care plan d/w VICENTE Junior. I agree w/ the christie components of her consult documentation. Creatinine stable at 1.27 today. BPs highly variable/labile - records from 02/09/25 show similar finding. Pain, stress of hospitalization, etc all likely contributing. With that said he seems to have chronically uncontrolled HTN. Would be reluctant to add additional meds at this time in light of new acquired solitary kidney status (and induce [place]). Close f/u with PCP and/or nephrology advised. If BPs remain elevated at that point then consider titration of coreg or lisinopril. Gurmeet Cool MD Subjective Patient seen and evaluated in bedside chair. He reports feeling better today. He denies any further chest pain or shortness of breath since his episode yesterday. He is still having some left flank pain. He is tolerating his diet well and passing gas, though no BM postop yet. We discussed him taking MiraLAX 1-2 packets daily for the next week or so to prevent constipation. He feels ready for discharge home. No additional complaints or concerns at this time. Telemetry reviewed: NSR with 1st degree block, PACs, PVCs. Rates 60-80s, intermittently in 120-130s but does not sustain tachycardia. Physical Exam Physical Exam: General: No acute distress, nondiaphoretic, well-developed, well-nourished. Skin: Warm, dry. No rashes or peripheral edema noted. Cardiac: Regular rate and rhythm without murmurs gallops or rubs. Pulm: Clear to auscultation bilaterally without wheezes, rales or rhonchi. Normal respiratory effort. 97% on room air. Abdominal: Soft, mild tenderness to palpation. Distended but improving. Bowel sounds present. : Kelley catheter draining clear yellow urine. Neuro: A&O x3. No focal neurological deficits. Results & Data Results & Data Vital Signs (Past 12 Hours) Vital Signs Temp Pulse Pulse Pulse Resp BP Pulse Ox 04/22/25 08:28 120 H 04/22/25 08:15 98.2 F 56 L 18 146/84 H 97 04/22/25 02:46 98.1 F 117 H 16 174/99 H 93 04/21/25 23:13 98.1 F 86 16 193/76 H 94 04/21/25 22:20 79 O2 Del Method 04/22/25 08:28 04/22/25 08:15 Room Air 04/22/25 02:46 Room Air 04/21/25 23:13 Room Air 04/21/25 22:20 Laboratory Results Reviewed CBC Reviewed BMP PG Care Time/CCT Total # of Minutes Spent Total Time Spent with Patient: Total time spent is greater than 50% in coordination of care (as documented) at patient's floor/unit and/or counseling patient: Coding Level of Care Code 03058 SUB INP/OBS CARE 2/35MIN Diagnoses Urothelial carcinoma of kidney C64.9 Chest pain R07.9 HTN (hypertension) I10 Chronic kidney disease, stage 3a N18.31 BPH w urinary obs/LUTS N40.1; N13.8"
--- NOTE | 2025-04-22 10:38 | Nephrology Progress Note ---
Date of Service April 22, 2025 Assessment & Plan (1) Urothelial carcinoma of kidney: (2) History of nephrectomy, left: (3) HTN (hypertension): (4) Chronic kidney disease, stage 3a: Plan Stage 3A CKD, b/l cr 1.3 to 1.5 mg/dl with h/o HTN, NSAID use, admitted to the hospital this morning and had elective surgery was without complication and postsurgery robotic left nephroureterectomy. Labs showed kidney function stable. Has been making decent amount of urine. Prior urinalysis was negative for proteinuria. BP still slightly elevated but much improved. Kidney function staying stable. Decent urine output. Overall doing much better, tolerating regular oral intake, had bowel movement. --Continue on lisinopril 20 mg daily for now --avoid NSAIDs. --expect kidney function to stay relatively stable. Will sign off Admission and Anticipated Discharge Date Admission Date: April 20, 2025 David Encarnacion was seen and evaluated this morning. He reports overall feeling better, surgical pain improved significantly. Blood pressure improved but still slightly elevated. Kidney function staying stable. Decent urine output. Review of Systems Review of Systems: All systems reviewed & are unremarkable except as noted in HPI & below Physical Exam Constitutional: WD/WN, vitals as above no acute distress Eyes: + anicteric sclerae Respiratory: no respiratory distress Auscultation: lungs clear to auscultation bilaterally Cardiovascular: Rate/Rhythm: regular rate and regular rhythm Heart Sounds: normal S1 and normal S2 Extremities: no edema Musculoskeletal: Extremities: extremities normal to inspection Skin: no rashes, warm and dry Neurologic: no focal motor deficits Psychiatric: Orientation: alert and oriented x 3 Affect: euthymic affect Results & Data Vital Signs (Past 12 Hours) Vital Signs Temp Pulse Pulse Resp BP Pulse Ox O2 Del Method 04/22/25 08:28 120 H 04/22/25 08:15 36.8 C 56 L 18 146/84 H 97 Room Air 04/22/25 02:46 36.7 C 117 H 16 174/99 H 93 Room Air 04/21/25 23:13 36.7 C 86 16 193/76 H 94 Room Air PG Care Time/CCT Total # of Minutes Spent Total Time Spent with Patient: Total time spent is greater than 50% in coordination of care (as documented) at patient's floor/unit and/or counseling patient: Coding Level of Care Code 42204 SUB INP/OBS CARE MIN Diagnoses Urothelial carcinoma of kidney C64.9 History of nephrectomy, left Z90.5 HTN (hypertension) I10 Chronic kidney disease, stage 3a N18.31
[2025-04-22 11:48] VITALS: PULSE 56
--- NOTE | 2025-04-24 16:56 | Discharge Summary ---
Date of Service April 24, 2025 Admission HPI Per Admitting Provider See H&P Admission Exam Per Admitting Provider See H&P Principal Diagnosis Upper Tract UCC Discharge Exam General: Alert in no acute distress. HEENT: Normocephalic Atraumatic. Inspection normal. Psychologic: Normal affect. Skin: [place] and Dry. No rashes or visible lesions. Abdomen: Soft Non-distended. No rebound or guarding. Discharge Data Allergies Allergy/AdvReac Type Severity Reaction Status Date / Time Penicillins Allergy Unknown Unknown Verified 04/20/25 06:06 Consultations 04/20/25 07:15 Consult Hospitalist Routine 04/20/25 07:19 Consult Nephrology Routine Procedures Performed Operation Date: 04/20/25 07:30 Actual Procedures p Robotic Assisted Laparoscopic Left Radical Nephroureterectomy(Left) - Luis Mckee, Total Time Total Time Spent Total Time Spent (In Minutes): 10 minutes Total Time Includes: Examination of the Patient, Discharge Planning, Medication Reconciliation and Communication With Other Providers Discharge Plan Discharge Items Patient Disposition: Home - Self-Care Reason For Visit: Malignant Neoplasm of Unspecified Kidney, Except R Discharge Diagnosis: Right renal mass/urothelial carcinoma Activity: Per Instructions section Non-emergency contact: Surgeon Call non-emergency contact if: you have any medication questions, your pain is not controlled, you have a fever, your wound has increased redness and your wound has increased drainage Follow-up/Referrals: Markus Stearns CRNP [Primary Care Provider] - (Follow-up in 1-2 weeks) Diet: Regular Addtl Attending Provider Instructions: Please take all medications as prescribed and keep all follow-ups as scheduled. Please call our office at [phone] with any questions, concerns or need to reschedule appointments for any reason. We are happy to assist you. Recovering at home: We recommend having someone with you for the first few days after surgery to help care for you. It is okay to shower tomorrow. Please avoid swimming, bathing or using hot tub until incisions are well healed. Avoid driving until you are not requiring pain medication any further. Walk at least a few times a day. Increase your distance, as you feel able. Stairs in your home are okay. Please avoid strenuous or sexual activity until your follow-up. We recommend using stool softener (i.e. Colace) to prevent constipation and straining, especially the first two weeks post operatively. Call [facility] [place] [facility] at [phone] if you experience: Chest pain or trouble breathing (call 911 or go to the hospital). Fever of 101F or higher Symptoms of infection at incision site, including redness or swelling, warmth, or bad-smelling drainage If you have catheter, and you notice: o Bloody urine or drainage that is dark red or has large clots (Please remember a small amount of blood is normal) o No drainage from the catheter for more than 6 hours o The catheter comes out of your bladder Pain that is not controlled with medicines Addtl Waistline Joiner Overlock Provider Instructions: Recommend taking 1-2 packets of MiraLAX daily for the next week or so to prevent constipation. This is available [id number]. Please follow-up with your PCP in 1-2 weeks. Pending Studies at Discharge: No Stand-Alone Forms: My [facility] [employer], Smoking Cessation Medications and DC Order Prescriptions: New oxycodone 5 mg tablet 5 mg PO Q6H PRN (Reason: pain) Qty: 12 0RF Continued carvedilol 12.5 mg tablet 12.5 mg PO BID lisinopril 20 mg tablet 20 mg PO QAM acetaminophen 500 mg Tablet 1,000 mg PO QID PRN (Reason: Pain, Mild) tamsulosin 0.4 mg capsule 0.4 mg PO HS Qty: 30 0RF Discharge Orders: Discharge Order (Routine); Ordered 04/22/25 Ordered By: Luis Crum/Other Patient Handouts: Indwelling Urinary Catheter Dc, Leg Bag Care Dc Admission Data Admit Date/Time: 04/20/25 07:15 Attending Provider: Luis Mckee Admit Provider: Luis Mckee Primary Care Provider: Markus Stearns Other Providers: Luis Orozco; Leyla Davies Kevin C.; Lorena Valentine; Gurmeet Cool; [facility],Referral Center; [facility] Other Interventions: Discharge Summary Assessment (RN) Last Done: 04/22/25 11:26 Coding Level of Care Code 30097 IN/OBS DISCH 30 MIN/LESS
== END 2025-04-22 12:15 | disposition home health service (06) | DRG 657 ==
LOC: ASU 05:43 → 2N 07:15